=== PATIENT | female | born 1975 | race Caucasian/White ===

== ENCOUNTER 2018-07-05 05:33 | Inpatient (IN) | payer OTHER ==
[2018-07-05] MEDS ORDERED: Celecoxib 200 MG Cap PO ONE (06:02)
[2018-07-05] MEDS ORDERED: Acetaminophen 500 MG Tab PO ONE (06:02)
[2018-07-05] MEDS ORDERED: Scopolamine 1.5 MG Transdermal Patch TRDERM ONE (06:24)
[2018-07-05] MEDS: Dextrose 5%-Lactated Ringers 1,000 ML IV SCH ×2 (06:45→12:53)
[2018-07-05] MEDS ORDERED: Succinylcholine 200 MG/10 ML MDV ONE (07:14)
[2018-07-05] MEDS ORDERED: Glycopyrrolate 0.2 MG/ML 5 ML MDV ONE (07:14)
[2018-07-05] MEDS ORDERED: Propofol 200 MG/20 ML SDV ONE (07:14)
[2018-07-05] MEDS ORDERED: Neostigmine Methylsulfate 1 MG/ML 5 ML Syringe ONE (07:14)
[2018-07-05] MEDS ORDERED: Dexamethasone 4 MG/ML SDV ONE (07:14)
[2018-07-05] MEDS ORDERED: Ondansetron 4 MG/2 ML SDV ONE (07:14)
[2018-07-05] MEDS ORDERED: fentaNYL 250 MCG/5 ML SDV ONE ×2 (07:14→07:54)
[2018-07-05] MEDS ORDERED: Rocuronium 50 MG/5 ML Vial ONE ×2 (07:14→08:11)
[2018-07-05] MEDS ORDERED: Ketamine 500 MG/5 ML MDV IV ONE (07:30)
[2018-07-05] MEDS ORDERED: cefOXitin 2 GM in Sodium Chloride 0.9% 50 ML IV ONE ×4 (07:30)
[2018-07-05] MEDS ORDERED: Lidocaine 2% 100 MG/5 ML Syringe IVPUSH ONE (07:30)
[2018-07-05] MEDS ORDERED: Ketamine 50 MG in Sodium Chloride 0.9% 49.5 ML IV SCH (08:00)
[2018-07-05] MEDS ORDERED: Ropivacaine 60 ML, Dexamethasone 8 MG, EPINEPHrine 0.4 MG, Sodium Chloride 0.9% 17.6 ML NERVRT SCH ×4 (08:00)
[2018-07-05] MEDS ORDERED: cefOXitin 2 GM Vial IRR ONE (08:10)
[2018-07-05] MEDS ORDERED: hydrOXYzine HCl 100 MG/2 ML SDV IM ONE (10:20)
[2018-07-05] MEDS ORDERED: Insulin Lispro 100 Unit/ML 3 ML KwikPen SUBCUT ONE (10:25)
[2018-07-05] MEDS: Tranexamic Acid 1,000 MG in Sodium Chloride 0.9% 50 ML IV SCH ×2 (10:43→13:52)
[2018-07-05] MEDS ORDERED: Coagulation Factor VIIa Recombinant (per MCG) 2 MG Vial IVPUSH ONE (11:15)
[2018-07-05] MEDS ORDERED: HYDROmorphone 0.5 MG/0.5 ML Syringe IVPUSH PRN (12:25)
[2018-07-05] MEDS ORDERED: Labetalol 20 MG/4 ML Syringe IVPUSH PRN (12:34)
[2018-07-05] MEDS ORDERED: diphenhydrAMINE 50 MG/ML SDV IVPUSH PRN (12:34)
[2018-07-05] MEDS ORDERED: Metoclopramide 10 MG/2 ML SDV IVPUSH PRN (12:34)
[2018-07-05] MEDS ORDERED: hydrOXYzine HCl 100 MG/2 ML SDV IM PRN (12:34)
[2018-07-05] MEDS ORDERED: Ondansetron 4 MG/2 ML SDV IVPUSH PRN (12:34)
[2018-07-05] MEDS: HYDROmorphone 1 MG/ML Syringe IV PRN ×3 (12:36→19:34)
[2018-07-05] MEDS: Lidocaine 0.4%/D5W 2 GM/500 ML BAG IV SCH (12:38)
[2018-07-05] MEDS: Lactated Ringers 1,000 ML IV SCH (13:00)
[2018-07-05] MEDS: Gabapentin 250 MG/5 ML Solution ML 470 ML Bottle PO SCH ×2 (13:49→20:42)
[2018-07-05] MEDS ORDERED: Pantoprazole 40 MG Vial IVPUSH SCH (14:00)
[2018-07-05] MEDS: cefOXitin 2 GM in Sodium Chloride 0.9% 50 ML IV SCH ×2 (14:17→19:34)
[2018-07-05] MEDS ORDERED: MVI, Adult with Vitamin K 10 ML, Thiamine 200 MG, Chromium/Copper/Mang/Selen/Zn 1 ML in... IV SCH ×4 (16:00)
[2018-07-05] MEDS: Acetaminophen Soln 650 MG/20.3 ML UD Cup PO SCH ×2 (16:29→22:11)
[2018-07-05] MEDS: metFORMIN 500 MG Tab PO SCH (16:30)
[2018-07-05] MEDS: Insulin Lispro 100 Unit/ML 3 ML KwikPen SUBCUT PRN ×2 (16:31→22:14)
[2018-07-05] MEDS: Baclofen 10 MG Tab PO SCH (20:39)
[2018-07-05] MEDS: rOPINIRole 0.5 MG Tab PO SCH (20:45)
[2018-07-05] MEDS ORDERED: Insulin Glargine,Human Rec. Analog 100 Units/ML 3 ML Pen SUBCUT ONE (21:00)
[2018-07-06] MEDS: HYDROmorphone 1 MG/ML Syringe IV PRN ×6 (01:10→22:03)
[2018-07-06] MEDS: cefOXitin 2 GM in Sodium Chloride 0.9% 50 ML IV SCH ×3 (01:12→14:29)
[2018-07-06] MEDS: Lactated Ringers 1,000 ML IV SCH (01:15)
[2018-07-06] MEDS ORDERED: Iohexol 647 MG/ML 50 ML SDV PO STA (01:28)
--- NOTE | 2018-07-06 02:27 | CRLCR ---
INDICATION: Post op George en Y gastric bypass TECHNIQUE: Modified upper GI 3 views PRELIMINARY IMPRESSION: 1. Oral contrast seen in the distal esophagus and proximal small bowel. 2. No definite evidence of contrast extravasation seen but examination is limited without fluoroscopic component. 3. Two surgical drains are present in the epigastrium and left upper quadrant. Dictated by Edson Mata MD @ 07/06/2018 2:25:51 AM FINAL REPORT: Agree with preliminary report. No additional findings. Dictated by: Ata Jiménez MD @ 07/13/2018 10:05:19 (Electronically Signed)
[2018-07-06] MEDS: Dextrose 5%-Lactated Ringers 1,000 ML IV SCH (04:15)
[2018-07-06] MEDS: Acetaminophen Soln 650 MG/20.3 ML UD Cup PO SCH ×4 (04:15→21:21)
[2018-07-06] MEDS: Insulin Lispro 100 Unit/ML 3 ML KwikPen SUBCUT PRN (05:20)
[2018-07-06] MEDS ORDERED: Insulin Glargine,Human Rec. Analog 100 Units/ML 3 ML Pen SUBCUT ONE ×2 (07:00→19:00)
[2018-07-06] MEDS: Lidocaine 0.4%/D5W 2 GM/500 ML BAG IV SCH (08:58)
[2018-07-06] MEDS: [UNRECOGNIZED DRUG - OTHER] TOP SCH (09:03)
[2018-07-06] MEDS: rOPINIRole 0.5 MG Tab PO SCH ×3 (09:05→20:26)
[2018-07-06] MEDS: metFORMIN 500 MG Tab PO SCH ×2 (09:07→16:42)
[2018-07-06] MEDS: Celecoxib 200 MG Cap PO SCH (09:07)
[2018-07-06] MEDS: Baclofen 10 MG Tab PO SCH ×3 (09:07→20:26)
[2018-07-06] MEDS: Gabapentin 250 MG/5 ML Solution ML 470 ML Bottle PO SCH ×3 (09:08→20:29)
[2018-07-06] MEDS: Metoprolol Succinate 25 MG Tab.ER PO SCH (09:09)
[2018-07-06] MEDS ORDERED: Lactated Ringers 1,000 ML IV SCH (09:45)
[2018-07-06] MEDS ORDERED: Venlafaxine 75 MG Cap.ER PO SCH (10:00)
[2018-07-06] MEDS: Magnesium Sulfate/Water 2 GM in Premix Bag 1 BAG IV SCH ×3 (10:58→21:22)
[2018-07-06] MEDS: Pantoprazole 40 MG Delayed-Release Granules 1 Packet PO SCH (14:27)
[2018-07-06] MEDS ORDERED: MVI, Adult with Vitamin K 10 ML, Thiamine 200 MG, Chromium/Copper/Mang/Selen/Zn 1 ML in... IV SCH ×4 (16:00)
[2018-07-06] MEDS: traZODone 50 MG Tab PO SCH (20:27)
[2018-07-07] MEDS: Acetaminophen Soln 650 MG/20.3 ML UD Cup PO SCH ×4 (03:27→22:00)
[2018-07-07] MEDS: Magnesium Sulfate/Water 2 GM in Premix Bag 1 BAG IV SCH ×2 (03:27→13:32)
[2018-07-07] MEDS: HYDROmorphone 1 MG/ML Syringe IV PRN (03:56)
[2018-07-07] MEDS ORDERED: hydrOXYzine HCl 25 MG Tab PO PRN (07:07)
[2018-07-07] MEDS ORDERED: diphenhydrAMINE 25 MG Cap PO PRN (07:08)
[2018-07-07] MEDS ORDERED: Ondansetron 4 MG Tab.DIS PO PRN (07:14)
[2018-07-07] MEDS: Celecoxib 200 MG Cap PO SCH (08:37)
[2018-07-07] MEDS: metFORMIN 500 MG Tab PO SCH ×2 (08:37→16:07)
[2018-07-07] MEDS: Venlafaxine 75 MG Tab PO SCH ×3 (08:39→21:58)
[2018-07-07] MEDS: Baclofen 10 MG Tab PO SCH ×3 (08:39→21:59)
[2018-07-07] MEDS: [UNRECOGNIZED DRUG - OTHER] TOP SCH (08:40)
[2018-07-07] MEDS: rOPINIRole 0.5 MG Tab PO SCH ×3 (08:40→22:00)
[2018-07-07] MEDS: Metoprolol Succinate 25 MG Tab.ER PO SCH (08:40)
[2018-07-07] MEDS: Gabapentin 250 MG/5 ML Solution ML 470 ML Bottle PO SCH ×3 (08:49→21:59)
[2018-07-07] MEDS ORDERED: Cyanocobalamin (Vitamin B12) 1,000 MCG/ML SDV IM ONE (09:00)
[2018-07-07] MEDS: Insulin Lispro 100 Unit/ML 3 ML KwikPen SUBCUT PRN (11:21)
[2018-07-07] MEDS: Potassium Phosphates 20 MMOLE in Sodium Chloride 0.9% 250 ML IV SCH (13:32)
--- NOTE | 2018-07-07 13:49 | PN ---
DATE OF SERVICE: 07/07/2018 SUBJECTIVE: Tiera is postoperative day #2. Vital signs have been stable. Up ambulating. Oral intake of 900 and urine output of 250. She has been having dark red drainage from her JPs of 80 mL and 30 mL over the past 24 hours. Pain has been controlled. The blood sugars in the past 24 hours have been 136, 171, 223, 157, and 147. She received 20 units of Lantus twice daily yesterday. REVIEW OF SYSTEMS: Remainder of review of systems was negative for any pertinent positives and negatives. OBJECTIVE: GENERAL: Tiera is a pleasant 43-year-old female. She is alert and orientated. VITAL SIGNS: Temperature is 98.2, pulse is 92, respiratory rate is 15, and blood pressure is 130/67. HEENT: Negative. NECK: Supple. HEART: Regular rate and rhythm. PULMONARY: Lungs are clear. ABDOMEN: Dressings are taken down. The 4x4's over Reece-Bell drain sites were saturated with red blood. HÉCTOR drain is intact and incisions look good. Abdominal binder has been on. EXTREMITIES: Without peripheral edema. LABORATORY DATA: Hemoglobin this morning was 7.3. Phosphorus of 2.4, and she is already receiving magnesium. ASSESSMENT: Laparoscopic gastric bypass surgery, liver biopsy, repair of diaphragmatic hernia, excision of mediastinal lipoma, partial gastrectomy for morbid obesity, hepatomegaly, abnormal focal abnormal friable lesion, bleeding, 2 liver lacerations, diaphragmatic hernia, mediastinal lipoma, and a small nodule on the surface of stomach. Date of surgery was 07/05/2018. Surgeon was Nicolas Delgado MD. PLAN: 1. Discontinue Lantus. 2. Saline lock IV. 3. Check CBC, CMP, and phosphorus. 4. Dressing off, may shower. 5. Three med cups per hour or one every 20 minutes to record at bedside. 6. Strip, drain, measure, and record HÉCTOR drains 4 times a day. 7. Effexor was changed to 75 mg t.i.d. for better coverage, Benadryl 25 mg oral q.4 hours p.r.n. itching, Atarax 25 mg p.o. q.4 hours for additional pain, Zofran 4 mg ODT q.4 hours p.r.n. nausea, and K-Phos 60 mmol IV one time today. 8. We will evaluate p.r.n. or in the a.m. Ale Mg PA-C /[id number]
[2018-07-07] MEDS: Acetaminophen/oxyCODONE 325-7.5 MG Tab PO PRN ×2 (13:55→19:49)
[2018-07-07] MEDS: Loperamide 2 MG Cap PO PRN (13:58)
[2018-07-07] MEDS: Pantoprazole 40 MG Delayed-Release Granules 1 Packet PO SCH (14:02)
[2018-07-07] MEDS: Magnesium Oxide 400 MG Tab PO SCH (16:07)
[2018-07-07] MEDS: traZODone 50 MG Tab PO SCH (22:01)
[2018-07-08] MEDS: Acetaminophen/oxyCODONE 325-7.5 MG Tab PO PRN ×2 (04:26→09:30)
[2018-07-08] MEDS: Acetaminophen Soln 650 MG/20.3 ML UD Cup PO SCH ×2 (04:26→10:54)
[2018-07-08] MEDS: Venlafaxine 75 MG Tab PO SCH (08:24)
[2018-07-08] MEDS: Baclofen 10 MG Tab PO SCH (08:24)
[2018-07-08] MEDS: Celecoxib 200 MG Cap PO SCH (08:24)
[2018-07-08] MEDS: rOPINIRole 0.5 MG Tab PO SCH (08:25)
[2018-07-08] MEDS: Magnesium Oxide 400 MG Tab PO SCH (08:25)
[2018-07-08] MEDS: metFORMIN 500 MG Tab PO SCH (08:26)
[2018-07-08] MEDS: Metoprolol Succinate 25 MG Tab.ER PO SCH (08:26)
[2018-07-08] MEDS: Gabapentin 250 MG/5 ML Solution ML 470 ML Bottle PO SCH (08:38)
--- NOTE | 2018-07-08 08:47 | DISCH ---
ADMISSION DIAGNOSES: 1. Morbid obesity, BMI 42. 2. Coronary artery disease. 3. Diabetes. 4. Essential hypertension. 5. Major depression. 6. Generalized anxiety disorder. 7. Hypothyroidism. 8. Gastroesophageal reflux disease with esophagitis. 9. Hiatal hernia. 10.Chronic pansinusitis. 11.Spondylosis without myelopathy or radiculopathy. 12.Lumbar stenosis. 13.Hypercholesterolemia. DISCHARGE DIAGNOSES: Laparoscopic gastric bypass surgery, liver biopsy, repair of diaphragmatic hernia, excision of mediastinal lipoma, partial gastrectomy for: 1. Morbid obesity. 2. Hepatomegaly. 3. Abnormal focal friable lesion. 4. Bleeding. 5. Two liver lacerations. 6. Diaphragmatic hernia. 7. Mediastinal lipoma. 8. Nodule on the surface of the stomach. Date of surgery: 07/05/2018. Surgeon: Nicolas Delgado MD. HISTORY: Tiera is a 43-year-old female with longstanding history of morbid obesity and increasing comorbidities. After preoperative evaluation and discussion of possible risks and possible complications, she wished to proceed with surgical procedure. HOSPITAL COURSE: Tiera had her surgery on 07/05/2018. She had no operative complications. On postoperative day #1, hemoglobin was 8.5. Upper GI was normal. She was started on a step 1 gastric bypass diet. Blood sugar was 213 in the morning. On postoperative day #2, hemoglobin was 7.3, blood sugar 149. Her Lantus was discontinued and she stayed on the oral medications for her diabetes. Mid morning, developed increased number of loose stools. Clostridium difficile was negative. She was given Imodium. Reported increase in back pain. Her Percocet, which she normally takes at home was restarted. Oral intake was adequate and pain was managed and stools did stop. On postoperative day #3, she was able to be discharged to home. Hemoglobin was 7.1, potassium 3.3, and she was given 1 unit of packed red blood cells prior to being discharged to home. She received dietary education. Activity was good. Pain was well managed. Oral intake and output adequate, and vital signs were stable. PHYSICAL EXAMINATION: GENERAL: Tiera is a 43-year-old female. VITAL SIGNS: Height is 5 feet 8 inches, weight is 276 pounds. TPR 97.6, 101, 16, blood pressure 144/84. HEENT: Negative. NECK: Supple. HEART: Regular rate and rhythm. LUNGS: Clear. ABDOMEN: She does have a red leakage around the HÉCTOR drains. These will be removed prior to discharge. HÉCTOR drains for the past 24 hours put out 20 and 40 mL of a light red drainage. Sutures intact. Incisions look good. Abdominal binder is on. EXTREMITIES: Without peripheral edema. DISPOSITION: Discharged to home. CONDITION: Stable and improving. FOLLOWUP APPOINTMENT: Ale Mg PA-C, on 07/12/2018, at 11:00 a.m. She is to come at 10:30 for labs, CBC, CMP, magnesium, and phosphorus. HOME MEDICATIONS: 1. Tylenol 650 mg every 6 hours, scheduled for 2 weeks, may taper off if she does not need for pain control. 2. Celebrex 200 mg p.o. daily, #14. 3. Mag-Oxide 400 mg p.o. daily, #100. 4. Ondansetron/Zofran ODT 4 mg every 4 hours p.r.n. nausea, #30. She is to resume her home medication of: 1. Percocet 1 tablet every 4 hours p.r.n. pain. 2. Aspirin 325 mg oral daily. 3. Baclofen 20 mg oral 3 times a day. 4. Zetia 10 mg oral daily. 5. Flonase 2 sprays in each nostril daily. 6. Neurontin at 1200 mg oral 3 times a day. 7. Ativan 0.5 mg every 6 hours p.r.n. anxiety. 8. Synthroid 88 mcg oral daily. 9. Jentadueto 2.5 mg/1000 mg tablet, it is linagliptin/metformin, one tablet oral twice daily. 10.Cozaar/losartan 50 mg oral daily. 11.Metoprolol-XL 25 mg oral daily. 12.Protonix 40 mg oral twice daily. 13.Zocor 40 mg oral daily. 14.Chantix 1 mg oral twice daily. 15.Effexor 225 mg oral daily. 16.Requip 0.5 mg oral 3 times a day. 17.Trazodone 100 mg at bedtime. She is to discontinue taking multivitamin, vitamin D3, vitamin B12, Basaglar insulin, NovoLog insulin, multivitamin, and B complex. DIET: Step 2 gastric bypass diet with no cereal until 07/20/2018. ACTIVITY: No lifting over 10 pounds for 2 weeks. Other activity; walk at least 6 times daily inside your home. Driving: Do not drive for 1 week and while taking Percocet. Shower/bathing; may shower. DISCHARGE INSTRUCTIONS: Notify provider if any fever, increased pain, drainage, nausea, or vomiting. Wound incision care: Keep site clean and dry. Wear abdominal binder for 2 weeks and then as tolerated. SPECIAL INSTRUCTIONS: Use incentive spirometer 10 times every hour while awake. Check blood sugars twice a day in the morning before breakfast and 2 hours after evening meal. Bring results to clinic appointments. Keep a record of food and liquid intake and bring to clinic appointments.
[2018-07-08] MEDS: Loperamide 2 MG Cap PO PRN (09:30)
--- NOTE | 2018-07-13 08:43 | OR ---
DATE OF PROCEDURE: 07/05/2018 PREOPERATIVE DIAGNOSIS: Morbid obesity. POSTOPERATIVE DIAGNOSES: 1. Morbid obesity. 2. Marked hepatomegaly with friability of liver, leading to liver laceration upon its retraction. 3. Diaphragmatic hernia. 4. Mediastinal lipoma. 5. Small (2 mm) nodule on the surface of the stomach. PROCEDURES: 1. Laparoscopic George-en-Y gastric bypass with long limb gastroenterostomy (52440). 2. Curtis-Cut needle liver biopsy (83450). 3. Repair of paraesophageal diaphragmatic hernia (97816). 4. Excision of mediastinal lipoma (87709). 5. Partial gastrectomy for excision of nodule on surface of stomach (50192). 6. Hepatorrhaphy (15876). ANESTHESIA: General. ASSISTANTS: Ale Mg PA-C, and TJ Mcguire. INDICATIONS FOR PROCEDURE: This is a 43-year-old presenting with longstanding morbid obesity and increasingly significant comorbidities. After preoperative evaluation and discussion, she wishes to proceed with a gastric bypass procedure. Potential risks of the procedure including bleeding, infection, injury to underlying viscera, possible leaks from GI tract closures, problems with bowel obstruction over time, as well as possibility of cardiopulmonary, septic, or hemorrhagic complications leading to were discussed, and the patient wishes to proceed. DETAILS OF PROCEDURE: The patient was taken to the operating room and placed in a supine position. After general endotracheal anesthesia was induced, she was converted to a lithotomy position, and the abdomen prepped and draped. At 15 cm inferior and 5 cm left of xiphoid process, a transverse incision was made and the peritoneal cavity entered under direct vision with an Optiview trocar, inflated to 15 mmHg pressure with CO2. Laparoscope was then reinserted. No underlying trocar insertion site injuries were seen. Following this, 5 additional trocars were placed across the upper and mid abdomen, general exploration was undertaken. The patient was noted to have quite striking hepatomegaly. Curtis-Cut needle biopsy was obtained from left lobe of the liver. Minimal bleeding from the biopsy sites was controlled with electrocautery. At this point, the omentum was then divided in the midline at the level of the transverse colon. This allowed identification of small bowel to ligament of Treitz. Small bowel was then traced out 200 cm distal to that point, where it was divided transversely with a NOREEN stapler. Small bowel was then traced out additional 200 cm where the [id number] enteroenterostomy was accomplished with internal firing of the Endo-NOREEN 60 mm stapler. Common opening was then closed transversely with the same stapler and angles anastomosed and mesenteric defect approximated with some 0 Ethibond stitch along with 4 mL of fibrin sealant. The divided end of the George limb was then from the mesentery for a few centimeters, which allowed an antecolic position of the George limb up to the level of the gastroesophageal junction without tension. The liver was then retracted anteriorly. The patient noted to have a roughly 2 mm nodule on the surface of the stomach, which might be a very early gastrointestinal stromal tumor. A good portion of the stomach was then freed up and excised. This was excised adjacent to a previous staple line, after the pouch had been created, and roughly a 1 cm margin grossly was evident away from the nodule upon the retrieval of that portion of the stomach. The patient was noted also to have a paraesophageal diaphragmatic hernia. The peritoneum overlying this was reflected downward, and during the course of the dissection, roughly a ping-pong ball-sized mediastinal lipoma was encountered. This was dissected free and removed and sent for histologic evaluation. The diaphragmatic hernia was then repaired anteriorly with 0 Ethibond sutures reinforced with PTFE pledgets. The gastrointestinal balloon catheter was then inflated to 15 mL and pulled up snugly against the EG junction. Gastric wall over the apex of the balloon was then marked with electrocautery, and balloon catheter deflated and pulled up from the esophagus. The lesser omental tissue adjacent to the gastric cardia was then excised, and this allowed dissection behind the stomach at the level of the cauterized israel in the gastric cardia where the pouch formation was initiated. Pouch was then completed with 2 additional firings of NOREEN stapler up to and through the angle of His. At this point, the above-mentioned resection of the stomach was then accomplished, removing the small nodular lesion on the surface of the stomach. The anvil of a 25 mm EEA stapler was then attached to [place] sump type tube. The latter was brought down through the mouth, taken out through a small opening in the gastric pouch allowing the anvil likewise to be pulled down to within the gastric pouch. The divided end of the George limb was then opened and the main body of the EEA stapler was passed several centimeters into the lumen of small bowel, brought up the anvil, and united with it, thus creating the gastrojejunostomy. Upon removal of the stapler, double donuts of mucosa were noted within it. Small bowel was closed off with a vascular staple line. Gastrojejunostomy was reinforced with some 3-0 Vicryl seromuscular stitch along with 4 mL of fibrin sealant. Leak test was accomplished with injection of 120 mL of air in the gastric pouch while submerged with cefoxitin-containing saline solution. No leaks were identified. At this point, there was noted to be quite a bit of blood accumulating around the posterior aspect of the left lobe of the liver. Inspection of that area found that the liver retractor had more or less split the liver partially where the retractor laid across it, resulting in some significant bleeding. The liver retractor was initially taken down, and the liver adjacent to this elevated, and bleeding area in the liver was then excessively cauterized. After cauterization, there was one remaining area that persisted to bleed, and this was then controlled with a [id number] stitch of 0 Vicryl stitch, using a blunt needle. Once this was completed, some additional fibrin sealant was then placed across the area of liver laceration. Two Reece-Bell drains were then placed, one entered into the gastrojejunostomy, one more underneath the liver, and at that point, no further problems were noted. Trocars were removed. The peritoneal cavity was deflated. Incisions were closed with some 4-0 Vicryl skin stitch and drains fixed with a 4-0 Vicryl stitch as well. The patient was taken to the recovery room in satisfactory condition. There were no evident complications, apart from the liver bleeding, which was a result of the patient having a marked hepatomegaly and friable liver. Physician insurance legal assistant, Ale Mg, played an essential role in assisting in this case, helping to position the patient, retract structures as needed, as well as suturing and cutting sutures when indicated. Her presence improved patient safety and decreased the operative time. Nicolas Delgado MD /[id number]
--- NOTE | 2018-07-13 09:07 | PN ---
DATE OF SERVICE: 07/06/2018 The patient had quite a bit of intraoperative bleeding. Postoperatively, this seemed to have stopped, and clinically there is no evidence of ongoing bleeding at this point. Vital signs have been good, as well as urine output. Hemoglobin did drop to 8.5. At this point, she has not had any cardiovascular symptoms for some time with the stent being in placed, and I don't think we will transfuse her. We will recheck some laboratory studies, including a CBC, tomorrow morning. Magnesium is somewhat low, and that will be supplemented. Otherwise, the upper GI x-ray looks satisfactory, other than the esophagus was emptying somewhat slowly. We will start with step-two diet, but with no solids today and restart some of her pertinent medications. Blood sugars are running in the low 200s overnight and will give her 10 units of Lantus this morning and repeat that this evening and continue with the metformin/Januvia mix and switch her IV to strictly LR, rather than any exogenous sugar. I suspect we will see the blood sugars come down nicely today with that regimen. Otherwise, maximize activity and work with pulmonary toilet. Nicolas Delgado MD /[id number]
== END 2018-07-08 12:30 | disposition home or self-care (01) | DRG 620 ==
LOC: JP.SDSSCHI 05:33 → JP.SDS 05:33 → JP.2SS 10:00 → EDSTATUS 12:28
PROVIDERS: ADMIT Surgery; ATTEND Surgery
PROC: 0D164ZA Bypass Stomach to Jejunum, Percutaneous Endoscopic Approach (ICD-10-PCS; principal; 2018-07-05)
PROC: 0FB24ZX Excision of Left Lobe Liver, Percutaneous Endoscopic Approach, Diagnostic (ICD-10-PCS; 2018-07-05)
PROC: 0BQT4ZZ Repair Diaphragm, Percutaneous Endoscopic Approach (ICD-10-PCS; 2018-07-05)
PROC: 0FQ Hepatobiliary System and Pancreas, Repair (ICD-10-PCS; 2018-07-05)
PROC: 0W3P4ZZ Control Bleeding in Gastrointestinal Tract, Percutaneous Endoscopic Approach (ICD-10-PCS; 2018-07-05)
PROC: 0WBC4ZX Excision of Mediastinum, Percutaneous Endoscopic Approach, Diagnostic (ICD-10-PCS; 2018-07-05)
PROC: 0DB64ZX Excision of Stomach, Percutaneous Endoscopic Approach, Diagnostic (ICD-10-PCS; 2018-07-05)
PROC: 30233N1 Transfusion of Nonautologous Red Blood Cells into Peripheral Vein, Percutaneous Approach (ICD-10-PCS; 2018-07-08)
DX: E66.01 Morbid (severe) obesity due to excess calories (principal); S36.113A Laceration of liver, unspecified degree, initial encounter; K91.71 Accidental puncture and laceration of a digestive system organ or structure during a digestive system procedure; Z68.41 Body mass index [BMI] 40.0-44.9, adult; R16.0 Hepatomegaly, not elsewhere classified; D17.4 Benign lipomatous neoplasm of intrathoracic organs; K44.9 Diaphragmatic hernia without obstruction or gangrene; K31.89 Other diseases of stomach and duodenum; Y92.234 Operating room of hospital as the place of occurrence of the external cause; K76.9 Liver disease, unspecified; R19.7 Diarrhea, unspecified; E11.9 Type 2 diabetes mellitus without complications; I10 Essential (primary) hypertension; I25.10 Atherosclerotic heart disease of native coronary artery without angina pectoris; G47.30 Sleep apnea, unspecified; K21.9 Gastro-esophageal reflux disease without esophagitis; F32.9 Major depressive disorder, single episode, unspecified; F41.1 Generalized anxiety disorder; E03.9 Hypothyroidism, unspecified; E78.00 Pure hypercholesterolemia, unspecified; M47.9 Spondylosis, unspecified; D64.9 Anemia, unspecified; Z87.891 Personal history of nicotine dependence; Z79.82 Long term (current) use of aspirin; Z79.4 Long term (current) use of insulin; Z88.0 Allergy status to penicillin; Z99.89 Dependence on other enabling machines and devices; Z88.8 Allergy status to other drugs, medicaments and biological substances; Z90.49 Acquired absence of other specified parts of digestive tract
CPT/HCPCS: 36415; 36430; 74240; 80053; 81025; 82962; 83735; 83880; 84100; 85025; 85027; 86850; 86900; 86901; 86920; 86922; 87493; 88304; 88307; 88313; A9270-GY; C9113; J0171; J0330; J0694; J1100; J1170; J1815; J1815-GY; J2001; J2405; J2704; J2710; J2795; J3010; J3410; J3411; J3420; J3475; J3490; J7030; J7042; J7050; J7120; J7189; P9016; Q9967